=== PATIENT | male | born 1985 | race Hispanic/Latino ===

== ENCOUNTER 2018-08-06 14:38 | Emergency (ER) | payer OTHER ==
[2018-08-06 15:54] LABS: BASOPHIL % 0.3 % (0.0-0.4); Basophil (Absolute #) 0.02 (0-0.4); Eosinophil % 1.9 % (0.00-5.0); Eosinophil (Absolute #) 0.13 (0-0.5); Granulocyte Absolute (ANC) 4.74 (1.4-6.9); Granulocytes % 70.5 % (36.0-66.0); Hematocrit 45.6 % (42-50); Hemoglobin 15.2 gm/dl (12.5-18.0); Lymphocyte (Absolute #) 1.32 (1.0-4.6); Lymphocytes % 19.6 % (24.0-44.0); Mean Cell Volume 86.4 fl (78-100); Mean Corpuscular Hemoglobin 28.8 pg (26-32); Mean Corpuscular Hgb Concent. 33.3 g/dl (32-36); Mean Platelet Volume 12.1 fl (6-9.5); Monocyte (Absolute #) 0.52 (0.0-1.3); Monocytes % 7.7 % (0.0-12.0); Platelet Count 189 K/mm3 (150-450); Red Blood Count 5.28 M/mm3 (4.1-5.6); Red Cell Distribution Width 13.5 % (11.5-14.0); White Blood Count 6.7 K/mm3 (4.0-10.5)
[2018-08-06 16:14] LABS: Appearance SLIGHTLY CLOUDY (CLEAR); Bacteria RARE /HPF (NEGATIVE); Bilirubin NEGATIVE (NEGATIVE); Blood MODERATE Ery/ul (0-5); Crystals Unidentified 25-50 /HPF (NEGATIVE); Glucose NEGATIVE (NEGATIVE); Ketones TRACE (NEGATIVE); Leukocyte Esterase NEGATIVE (NEGATIVE); Mucus MANY /HPF (NEGATIVE); Nitrite NEGATIVE (NEGATIVE); Protein,Urine Dip NEGATIVE (Negative); RBC 51-100 /HPF (0-2); Specific Gravity 1.032 (1.005-1.025); Sperm PRESENT /HPF (NEGATIVE); Urobilinogen 2 mg/dL (0-1)
[2018-08-06 16:16] LABS: ALKALINE PHOSPHATASE 102 U/L (38-126); ANION GAP 17.6 MEQ/L (5-15); BLOOD UREA NITROGEN 17 mg/dL (9-20); CHLORIDE 104 mmol/L (98-107); Calcium 9.4 mg/dL (8.4-10.2); Carbon Dioxide 27 mmol/L (22-30); Creatinine 1 1.05 mg/dL (0.66-1.25); Glucose 90 mg/dL (74-106); SGOT/AST 24 U/L (17-59); SGPT/ALT 35 U/L (0-50); SODIUM 144 mmol/L (137-145); Total Protein 7.3 g/dL (6.3-8.2)
[2018-08-06 16:16] LABS: Epithelial Cells RARE /HPF (FEW)
[2018-08-06] MEDS ORDERED: TORAdol 30 mg Injection ONE (16:32)
[2018-08-06] MEDS: TORAdol 30 mg Injection IM ONE ×2 (16:34→17:34)
[2018-08-06] MEDS ORDERED: Sodium Chloride 0.9% 1000 ML 1,000 ML ONE (17:05)
[2018-08-06 17:26] VITALS: BP 126/82; PULSE 77
[2018-08-06] MEDS ORDERED: Sodium Chloride 0.9% 1000 ML 1,000 ML IV STA (17:26)
--- NOTE | 2018-08-06 17:58 | ERPHSYRPT ---
- History of Present Illness Source: patient Exam Limitations: no limitations Patient Subjective Stated Complaint: states developed right lower quad abd pain that radiates into right flank area. started this am. has not been able to urinate much since then. Triage Nursing Assessment: ambulated to room per self. skin w/d, color normal, resp easy. holding right lower abd. was only able to void approx 5cc at this time. Physician History: Pt is a 32 y/o male that presented to the ER with complains of RLQ abdominal pain. Pt states, he can't urinate, and is in marked discomfort. Pt denies F/C/ S. No N/V/D. Pt denies any flank pain. No dysuria or frequency. Timing/Duration: today Activites at Onset: rest Quality: cramping, sharpness Onset Location: RLQ Severity of Pain-Max: moderate Severity of Pain-Current: none Modifying Factors: Improves With: analgesics Associated Symptoms: abdominal pain Prior abdominal problems: other (H/O Nephrolithiasis) Allergies/Adverse Reactions: No Known Drug Allergies Allergy (Unverified 08/06/18 15:14) Home Medications: No Reportable Medications [No Reported Medications] 08/06/18 [History] Hx Tetanus, Diphtheria Vaccination/Date Given: No Hx Influenza Vaccination/Date Given: No Hx Pneumococcal Vaccination/Date Given: No - Past Medical History Pertinent Past Medical History: Yes Other Medical History: kidney stones - Past Surgical History Past Surgical History: No - Social History Smoking Status: Never smoker Exposure to second hand smoke: No Drug Use: none Patient Lives Alone: No - Review of Systems Constitutional: No Fever, No Chills Eyes: No Symptoms Ears, Nose, & Throat: No Symptoms Respiratory: No Cough, No Dyspnea Cardiac: No Chest Pain, No Edema, No Syncope Abdominal/Gastrointestinal: No Abdominal Pain, No Nausea, No Vomiting, No Diarrhea Genitourinary Symptoms: Urinary Retention, Other (RLQ pain) Musculoskeletal: No Back Pain, No Neck Pain Neurological: No Dizziness, No Focal Weakness, No Sensory Changes - Nursing Vital Signs Nursing Vital Signs: Initial Vital Signs Temperature 98 F 08/06/18 15:09 Pulse Rate 78 08/06/18 15:09 Respiratory Rate 16 08/06/18 15:09 Blood Pressure 140/73 08/06/18 15:09 O2 Sat by Pulse Oximetry 98 08/06/18 15:09 Pain Scale Pain Intensity 0 - Physical Exam General Appearance: no apparent distress, alert Eye Exam: PERRL/EOMI Ears, Nose, Throat Exam: pharynx normal, moist mucous membranes Neck Exam: normal inspection, supple Respiratory Exam: normal breath sounds, lungs clear Cardiovascular Exam: regular rate/rhythm, No edema Gastrointestinal/Abdomen Exam: soft, tenderness (RLQ pain) Back Exam: normal inspection, No CVA tenderness Extremity Exam: normal inspection, normal range of motion, No pedal edema Neurologic Exam: alert, oriented x 3, cooperative, sensation nml, No motor deficits SpO2: 98 - Course Nursing assessment & vital signs reviewed: Yes - CT Exams Abdomen/Pelvis CT Interpretation: Tele-radiologist Report (3mm calculus at the R UVJ, causing mild hydrouretronephrosis, and perinephric stranding) Ordered Tests: Active Orders 24 hr Category Date Time Status ABDOMEN AND PELVIS W/0 CONTRAS [CT] Stat Exams 08/06/18 15:19 Taken CBC W DIFF Stat Lab 08/06/18 15:49 Completed CMP Stat Lab 08/06/18 15:49 Completed CULTURE,URINE Stat Lab 08/06/18 15:52 Received UA W/RFX UR CULTURE Stat Lab 08/06/18 15:52 Completed Medication Summary Generic Name Dose Route Start Last Admin Trade Name Freq PRN Reason Stop Dose Admin Sodium Chloride 1,000 mls @ 999 mls/hr 08/06/18 17:26 08/06/18 17:33 Sodium Chloride 0.9% 1000 Ml IV 08/06/18 18:26 999 mls/hr .[id number] STA Administration Discontinued Medications Generic Name Dose Route Start Last Admin Trade Name Freq PRN Reason Stop Dose Admin Sodium Chloride Confirm 08/06/18 17:05 Sodium Chloride 0.9% 1000 Ml Administered 08/06/18 17:06 Dose 1,000 mls @ ud .ROUTE .STK-MED ONE Ketorolac Tromethamine 60 mg 08/06/18 16:30 08/06/18 17:34 Toradol 30 Mg Injection IM 08/06/18 16:31 Not Given STAT ONE Ketorolac Tromethamine Confirm 08/06/18 16:32 Toradol 30 Mg Injection Administered 08/06/18 16:33 Dose 60 mg .ROUTE .STK-MED ONE Lab/Rad Data: Laboratory Result Diagrams 08/06/18 15:49 08/06/18 15:49 Laboratory Results 08/06/18 08/06/18 08/06/18 Range/Units 15:52 15:49 15:49 WBC 6.7 (4.0-10.5) K/mm3 RBC 5.28 (4.1-5.6) M/mm3 Hgb 15.2 (12.5-18.0) gm/dl Hct 45.6 (42-50) % MCV 86.4 (78-100) fl MCH 28.8 (26-32) pg MCHC 33.3 (32-36) g/dl RDW 13.5 (11.5-14.0) % Plt Count 189 (150-450) K/mm3 MPV 12.1 H (6-9.5) fl Gran % 70.5 H (36.0-66.0) % Eos # (Auto) 0.13 (0-0.5) Absolute Lymphs (auto) 1.32 (1.0-4.6) Absolute Monos (auto) 0.52 (0.0-1.3) Lymphocytes % 19.6 L (24.0-44.0) % Monocytes % 7.7 (0.0-12.0) % Eosinophils % 1.9 (0.00-5.0) % Basophils % 0.3 (0.0-0.4) % Absolute Granulocytes 4.74 (1.4-6.9) Basophils # 0.02 (0-0.4) Sodium 144 (137-145) mmol/L Potassium 4.0 (3.5-5.1) mmol/L Chloride 104 (98-107) mmol/L Carbon Dioxide 27 (22-30) mmol/L Anion Gap 17.6 H (5-15) MEQ/L BUN 17 (9-20) mg/dL Creatinine 1.05 (0.66-1.25) mg/dL Estimated GFR > 60.0 ML/MIN Glucose 90 (74-106) mg/dL Calcium 9.4 (8.4-10.2) mg/dL Total Bilirubin 0.40 (0.2-1.3) mg/dL AST 24 (17-59) U/L ALT 35 (0-50) U/L Alkaline Phosphatase 102 (38-126) U/L Serum Total Protein 7.3 (6.3-8.2) g/dL Albumin 4.0 (3.5-5.0) g/dL Urine Color YELLOW (YELLOW) Urine Appearance SLIGHTLY CLOUDY (CLEAR) Urine pH 5.0 (5-6) Ur Specific [place] 1.032 (1.005-1.025) Urine Protein NEGATIVE (Negative) Urine Ketones TRACE (NEGATIVE) Urine Blood MODERATE (0-5) [place]/ul Urine Nitrite NEGATIVE (NEGATIVE) Urine Bilirubin NEGATIVE (NEGATIVE) Urine Urobilinogen 2 (0-1) mg/dL Ur Leukocyte Esterase NEGATIVE (NEGATIVE) Urine WBC (Auto) 3-5 (0-5) /HPF Urine RBC (Auto) 51-100 (0-2) /HPF U Hyaline Cast (Auto) 3-5 (0-2) /LPF U Epithel Cells (Auto) RARE (FEW) /HPF Urine Bacteria (Auto) RARE (NEGATIVE) /HPF Unidentified Crystals 25-50 (NEGATIVE) /HPF Other Casts (Auto) NEGATIVE (NEGATIVE) /LPF Urine Mucus (Auto) MANY (NEGATIVE) /HPF Urine Sperm (Auto) PRESENT (NEGATIVE) /HPF Urine Culture Reflexed YES (NO) Urine Glucose NEGATIVE (NEGATIVE) mg/dL - Progress Progress: improved Progress Note: 08/06/18 17:59 Pt was given 2 lit of IVF, labs were do0ne and CT of abd and pelvis. Pt had blood in the urine, but no UTI. Labs were normal. CT did show a small stone in the UVJ, post CT pt stated, that the pain resolved, and he did not need the Toradol. He is feeling much better and pain free, and is feeling well for d/c. Pt should f/u with his PCP. Will see patient in: office Counseled pt/family regarding: need for follow-up - Departure Departure Disposition: Home Clinical Impression: Nephrolithiasis Condition: Stable Critical Care Time: No Referrals: Provider,Unknown [Primary Care Provider] - Additional Instructions: Drink plenty of fluids and f/u with your PCP.
[2018-08-06 18:21] VITALS: O2SAT 97
--- NOTE | 2018-08-06 22:18 | XRAY ---
Indication: Right lower quadrant pain 2 weeks. Multiple contiguous axial images obtained through the abdomen and pelvis without contrast as ordered. Comparison: None Lung bases are clear. Heart is not enlarged. Stomach is distended with food/fluid. Noncontrasted stomach and bowel loops appear nonobstructed. Normal appendix. No free fluid/air. There is 2-3 mm right UVJ calculus. Proximal right ureter is slightly prominent along with mild hydronephrosis consistent with partial obstructive uropathy. Scattered small centimeter/subcentimeter mesenteric nodes, possible adenitis. Remaining liver, gallbladder, pancreas, spleen, adrenal glands, left kidney, ureters, bladder, and aorta appear unremarkable for noncontrast exam. Osseous structures intact. No ventral or inguinal hernias. Impression: 1. 2-3 mm right UVJ calculus producing partial obstruction. 2. Small mesenteric nodes, possible adenitis. 3. Remaining CT abdomen/pelvis without contrast exam is negative. Comment: Preliminary interpretation was made by C. No critical discrepancy. CTDI 23.68
== END 2018-08-06 18:33 | disposition home or self-care (01) ==
LOC: ED 14:38
DX: N20.2 Calculus of kidney with calculus of ureter (principal); R33.9 Retention of urine, unspecified
CPT/HCPCS: 36000; 36415; 74176; 80053; 81001; 85025; 87086; 99284; J1885